=== PATIENT | female | born 1945 | race Two or more races ===

== ENCOUNTER 2022-10-05 15:10 | Emergency (ER) | payer OTHER ==
[~2022-10-05] VITALS: Ht 157.5 cm; Wt 65.8 kg
[2022-10-05] MEDS ORDERED: DIOVAN40 MG (15:31)
[2022-10-05] MEDS ORDERED: SYNTHROID100 MCG (15:32)
== END 2022-10-05 22:06 | disposition home or self-care (01) ==
LOC: ER 15:10
DX: T65.891A Toxic effect of other specified substances, accidental (unintentional), initial encounter (principal); E03.9 Hypothyroidism, unspecified; I10 Essential (primary) hypertension